=== PATIENT | male | born 1995 | race Caucasian/White ===

== ENCOUNTER 2023-07-30 00:55 | Inpatient (IN) | payer SELFPAY ==
[~2023-07-30] VITALS: Ht 167.6 cm; Wt 57.6 kg
[2023-07-30] VITALS (20 sets, daily range): BP systolic 100–160; BP diastolic 69–99; TEMP 97.4–99.5; O2SAT 91–100
[2023-07-30] MEDS: ETOMIDATE 2 MG/ML VIAL IV ONE ×3 (01:02→01:18)
[2023-07-30] MEDS: SUCCINYLCHOLINE CHLORIDE 20 MG/ML VIAL IV ONE (01:05)
[2023-07-30 01:33] LABS: BASOPHILS % (AUTO) 0.5 % (0.0-2.0); EOSINOPHILS # (AUTO) 0.1 K/uL (0.0-0.7); EOSINOPHILS % (AUTO) 0.5 % (0.0-6.0); HEMATOCRIT 40 % (39-51); HEMOGLOBIN 13.8 g/dL (13.5-17.5); LYMPHOCYTES # (AUTO) 3.3 K/uL (0.8-4.8); LYMPHOCYTES % (AUTO) 31.7 % (20.0-44.0); MEAN CORPUSCULAR HEMOGLOBIN 32 PG (26.0-33.0); MEAN CORPUSCULAR HGB CONC 34 g/dl (31.0-36.0); MEAN CORPUSCULAR VOLUME 93 fL (80-96); MONOCYTES # (AUTO) 0.7 K/uL (0.1-1.30); MONOCYTES % (AUTO) 6.8 % (2.0-12.0); NEUTROPHILS # (AUTO) 6.4 K/uL (1.8-8.9); NEUTROPHILS % (AUTO) 60.5 % (43.0-81.0); PLATELET COUNT (AUTO) 313 K/uL (150-450); RED BLOOD CELL COUNT(AUTO) 4.35 MIL/uL (4.5-6.0); RED CELL DISTRIBUTION WIDTH 13.9 % (11.5-15.0); WHITE BLOOD COUNT (AUTO) 10.6 K/uL (4.3-11.0)
[2023-07-30 01:36] LABS: APPEARANCE,URINE CLEAR (CLEAR); BILIRUBIN,URINE NEGATIVE (NEGATIVE); BLOOD, URINE NEGATIVE Ery/uL (NEGATIVE); COLOR,URINE YELLOW (YELLOW); KETONES,URINE NEGATIVE (NEGATIVE); LEUKOCYTE ESTERASE ,URINE NEGATIVE (NEGATIVE); NITRITE, URINE NEGATIVE (NEGATIVE); PROTEIN,URINE NEGATIVE (NEGATIVE); UGLUCOSE NEGATIVE (NEGATIVE)
[2023-07-30] MEDS ORDERED: ETOMIDATE 2 MG/ML VIAL ONE (01:40)
[2023-07-30] MEDS: IV NS 0.9% 1,000 ML IV ONE ×3 (01:40→02:14)
[2023-07-30 01:54] LABS: CALCIUM, SERUM 8.3 mg/dL (8.5-10.1); CARBON DIOXIDE 26 mmol/L (21-32); CHLORIDE 108 mmol/L (98-107); CREATININE 0.9 mg/dL (0.6-1.3); GLUCOSE 169 mg/dL (74-106); SODIUM SERUM 145 mmol/L (136-145); UREA NITROGEN, BLOOD 8 mg/dL (7-18)
[2023-07-30 01:56] LABS: AMPHETAMINE, URINE NEGATIVE (NEGATIVE); BARBITURATE, URINE NEGATIVE (NEGATIVE); OPIATE, URINE NEGATIVE (NEGATIVE); PHENCYCLIDINE SCREEN,URINE NEGATIVE (NEGATIVE)
[2023-07-30 01:57] LABS: BENZODIAZEPINE, URINE POSITIVE (NEGATIVE); CANNABINOID, URINE POSITIVE (NEGATIVE); COCCAINE, URINE POSITIVE (NEGATIVE)
[2023-07-30 02:05] LABS: LACTIC ACID 3.3 mmol/L (0.4-2.0)
[2023-07-30 02:08] LABS: ALANINE AMINOTRANSFERASE 53 U/L (12-78); ALCOHOL, BLOOD 113 mg/dL (0-10); ALKALINE PHOSPHATASE 66 U/L (46-116); ASPARTATE AMINOTRANSFERASE 26 U/L (15-37); BILIRUBIN,TOTAL 0.2 mg/dL (0.2-1.0); NT-PRO BNP 32 pg/mL (0-125); POTASSIUM 2.6 mmol/L (3.5-5.1); TOTAL PROTEIN, SERUM 7.6 g/dL (6.4-8.2)
[2023-07-30] MEDS ORDERED: PROPOFOL 100 ML ONE (02:10)
[2023-07-30] MEDS: PROPOFOL 100 ML IV PRN ×2 (02:23→09:30)
[2023-07-30] MEDS ORDERED: POTASSIUM CL. PREMIX PERIPHER. 100 ML ONE (03:06)
[2023-07-30] MEDS: POTASSIUM CL. PREMIX PERIPHER. 50 ML IV SCH (03:06)
[2023-07-30] MEDS ORDERED: ACETAMINOPHEN 325 MG TABLET PO PRN (03:30)
[2023-07-30] MEDS ORDERED: ZOLPIDEM TARTRATE 5 MG TABLET PO PRN (03:30)
[2023-07-30] MEDS ORDERED: MAGNESIUM HYDROXIDE 30 ML UDC PO PRN (03:30)
[2023-07-30] MEDS ORDERED: Z GUARD REMEDY 4 OZ OINT TP PRN (03:30)
[2023-07-30] MEDS ORDERED: ONDANSETRON HCL/PF 4 MG/2 ML VIAL IVP PRN (03:30)
[2023-07-30] MEDS ORDERED: MAG HYDROX/AL HYDROX/SIMETH 30 ML UDC PO PRN (03:30)
[2023-07-30] MEDS: NALOXONE HCL 0.4 MG/ML AMPUL IV STA ×2 (03:43→03:44)
[2023-07-30 04:28] LABS: BILIRUBIN,DIRECT 0.2 mg/dL (0.0-0.2)
[2023-07-30 04:28] LABS: ABG BASE EXCESS -5.3 mmol/L; ABG OXYGEN SATURATION 99.4 % (92.0-98.5); ABG PCO2 22.3 mmHg (35.0-45.0); ABG PO2 521.4 mmHg (75.0-100.0); ABG TOTAL HEMOGLOBIN 12.9 G/dL (13.5-18.0); COHb 0.3 % (0.5-1.5); MetHb 0.4 % (0.0-1.5); O2Hb 98.7 % (94.0-97.0); SITE, ABG Right Radial
[2023-07-30 04:54] LABS: LACTIC ACID REFLEX 2.2 mmol/L (0.4-1.9)
[2023-07-30] MEDS: PROPOFOL 10MG/ML 50ML 50 ML IV PRN (04:54)
[2023-07-30] MEDS: IV NS 0.9% 1,000 ML IV PRN (04:55)
[2023-07-30] MEDS ORDERED: NALOXONE HCL 0.4 MG/ML AMPUL IV ONE (07:39)
[2023-07-30] MEDS ORDERED: PROPOFOL 100 ML IV PRN (08:00)
[2023-07-30] MEDS ORDERED: DC PROPOFOL WHEN EXTUBATED XX PRN (08:00)
[2023-07-30] MEDS: POTASSIUM CL. PREMIX PERIPHER. 50 ML IV ONE (09:18)
[2023-07-30] MEDS: Thiamine 100 MG in IV D5W 50 ML IV SCH (09:19)
[2023-07-30] MEDS ORDERED: ETOMIDATE 2 MG/ML VIAL IV ONE (11:31)
[2023-07-30 15:25] LABS: CALCIUM, SERUM 8.1 mg/dL (8.5-10.1); CREATININE 0.6 mg/dL (0.6-1.3); POTASSIUM 3.3 mmol/L (3.5-5.1)
[2023-07-31] VITALS (17 sets, daily range): BP systolic 97–131; BP diastolic 56–91; TEMP 98–99; O2SAT 97–100
[2023-07-31 05:23] LABS: BASOPHILS % (AUTO) 0.2 % (0.0-2.0); EOSINOPHILS % (AUTO) 0.1 % (0.0-6.0); HEMATOCRIT 39 % (39-51); HEMOGLOBIN 13.2 g/dL (13.5-17.5); LYMPHOCYTES # (AUTO) 0.6 K/uL (0.8-4.8); LYMPHOCYTES % (AUTO) 4.4 % (20.0-44.0); MEAN CORPUSCULAR HEMOGLOBIN 31 PG (26.0-33.0); MEAN CORPUSCULAR HGB CONC 34 g/dl (31.0-36.0); MEAN CORPUSCULAR VOLUME 92 fL (80-96); MONOCYTES # (AUTO) 1.6 K/uL (0.1-1.30); MONOCYTES % (AUTO) 10.8 % (2.0-12.0); NEUTROPHILS # (AUTO) 12.4 K/uL (1.8-8.9); NEUTROPHILS % (AUTO) 84.5 % (43.0-81.0); PLATELET COUNT (AUTO) 249 K/uL (150-450); RED BLOOD CELL COUNT(AUTO) 4.22 MIL/uL (4.5-6.0); RED CELL DISTRIBUTION WIDTH 13.6 % (11.5-15.0); WHITE BLOOD COUNT (AUTO) 14.7 K/uL (4.3-11.0)
[2023-07-31 05:47] LABS: CALCIUM, SERUM 9.2 mg/dL (8.5-10.1); CREATININE 0.7 mg/dL (0.6-1.3); PHOSPHORUS 3.2 mg/dL (2.5-4.9); POTASSIUM 3.7 mmol/L (3.5-5.1)
== END 2023-07-31 14:41 | disposition home or self-care (01) | DRG 917 ==
LOC: ER 00:58 → ICU 02:25
PROVIDERS: ADMIT Nurse Practitioner Acute Care; ATTEND Nurse Practitioner Acute Care
PROC: 5A1935Z Respiratory Ventilation, Less than 24 Consecutive Hours (ICD-10-PCS; principal; 2023-07-30)
PROC: 0BH17EZ Insertion of Endotracheal Airway into Trachea, Via Natural or Artificial Opening (ICD-10-PCS; 2023-07-30)
DX: T42.4X1A Poisoning by benzodiazepines, accidental (unintentional), initial encounter (principal); G92.9 Unspecified toxic encephalopathy; J96.01 Acute respiratory failure with hypoxia; E87.20 Acidosis, unspecified; T40.5X1A Poisoning by cocaine, accidental (unintentional), initial encounter; T40.711A Poisoning by cannabis, accidental (unintentional), initial encounter; F14.10 Cocaine abuse, uncomplicated; Y92.9 Unspecified place or not applicable; E87.6 Hypokalemia; K76.0 Fatty (change of) liver, not elsewhere classified; F12.10 Cannabis abuse, uncomplicated; F13.10 Sedative, hypnotic or anxiolytic abuse, uncomplicated; Y92.89 Other specified places as the place of occurrence of the external cause; Y90.5 Blood alcohol level of 100-119 mg/100 ml
CPT/HCPCS: 31720; 36415; 36600; 70450-TC; 71045-TC; 71250-TC; 80048-TC; 80053-TC; 82248-TC; 82550-TC; 82803-TC; 83605-TC; 83735-TC; 83880; 84100-TC; 84484-TC; 85025-TC; 87081-TC; 94002-TC; 94799-TC; 99082-TC; A4223; G0378; G0480; J0330; J2310; J3411; J3480; J3490; J7030; J7060